=== PATIENT | male | born 1970 | race Caucasian/White ===

== ENCOUNTER 2022-07-11 00:21 | Observation (INO) | payer OTHER, SELFPAY ==
[2022-07-11] VITALS (25 sets, daily range): BP systolic 125–179; BP diastolic 83–98; PULSE 84–113; RESP 14–29; TEMP 35.9–37; O2SAT 94–100; BMI 20.7
--- NOTE | ~2022-07-11 | CT_ITS ---
EXAMINATION: CTA chest PE protocol DATE: 07/11/2022 01:54 INDICATION: Shortness of breath. Chest pain. TECHNIQUE: Computed tomography angiography (CTA) of the chest was performed with 100 mL Omnipaque-350 intravenous contrast timed to evaluate the pulmonary arteries. Coronal maximum intensity projection 3D-reconstructions were created by the technologist. Automated exposure control and iterative reconst ruction technique were employed. The dose-length product was 315.12 mGy-cm. COMPARISON: CT abdomen and pelvis 05/22/2014 FINDINGS: There is mild emphysema. There is mild atelectasis bilaterally. No pleural effusion. The he art size is normal. No pericardial effusion. There is no pulmonary embolus. There is diffuse hepatic steatosis. There is a 15 mm cyst in left kidney. There is mild thoracic spondylosis. There is mild ch ronic anterior wedging of 2 thoracic vertebral bodies. IMPRESSION: 1. No pulmonary embolus. 2. Mild emphysema. Reviewed, dictated and finalized at location A.
--- NOTE | ~2022-07-11 | XR_ITS ---
EXAMINATION: XR chest 2V DATE: 07/11/2022 01:44 INDICATION: Chest pain. Shortness of breath. TECHNIQUE: Frontal and lateral views of the chest were obtained. COMPARISON: Chest 2 views 05/24/2017, chest CT 07/11/2022 FINDINGS: The chest demonstrates clear lungs without pneumonia, pleural effusion, or pneumothorax. Th e heart size is normal. IMPRESSION: 1. No acute cardiopulmonary disease. Reviewed, dictated and finalized at location A.
--- NOTE | ~2022-07-11 | NM_ITS ---
EXAMINATION: NM stress w perf spect multi DATE: 07/12/2022 09:54 INDICATION: Chest pain. TECHNIQUE: Rest images were obtained following intravenous administration of 10.9 mCi Tc99m tetrofosm in (Myoview). The patient performed an exercise activity. At peak exercise, 35.0 mCi Tc99m tetrofosmi n (Myoview) was administered intravenously, and stress images were obtained. Data was reconstructed i nto short axis and horizontal and vertical long axis SPECT images. Gated SPECT images were also obtai anne. COMPARISON: Chest CT 07/11/2022 FINDINGS: There is no definite reversible or fixed perfusion abnormality to suggest ischemia or infar ction. There is no segmental wall motion abnormality. Left ventricular ejection fraction measures 6 0%. IMPRESSION: 1. No definite ischemia or infarct. 2. Normal left ventricular ejection fraction measuring 60%. Reviewed, dictated and finalized at location A.
--- NOTE | 2022-07-11 00:34 | ECG_ITS ---
Measurements Intervals [place] Rate: 105 P: 75 NE: 155 QRS: 81 QRSD: 111 T: 69 QT: 355 QTc: 471 Interpretive Statements SINUS TACHYCARDIA INCOMPLETE RIGHT BUNDLE BRANCH BLOCK MINIMAL Q WAVES- INFERIOR LEADS BORDERLINE ECG NO PREVIOUS ECG AVAILABLE FOR COMPARISON Electronically Signed On 07-11-2022 7:47:10 CDT by Mikael Tran D.O.
--- NOTE | 2022-07-11 00:49 | ED.CHESTPAIN ---
HPI - Chest Pain General Chief Complaint: Chest Pain Stated Complaint: CP & SOB Time Seen by Provider: 07/11/22 00:32 Source: patient, EMS and RN notes reviewed Mode of arrival: EMS Limitations: no limitations History of Present Illness HPI narrative: This is a 51 year old male smoker who presents for evaluation of chest pain and shortness of breath. He went to sleep around 8 pm and he was feeling fine. He woke up tonight and he felt like there was pressure on his chest and he could not breath. He states he thought he was having a heart attack so he called EMS. EMS gave patient aspirin 324 mg PO and nitro x 2 . Patient reports his pain was initially 10/10 but it is now 2/10. He reports having similar episodes in the past and he was told it was a panic attack. He denies heart disease. He does admit to drinking 6 pack of beer tonight. He denies cough, nausea, vomiting. Pain was nonradiating. Related Data Home Medications Medication Instructions Recorded Confirmed No Home Medications 07/11/22 07/11/22 Allergies Allergy/AdvReac Type Severity Reaction Status Date / Time Penicillins Allergy Mild SOB,RASH Verified 07/11/22 00:42 CHILD Review of Systems Review of Systems: All systems reviewed & are unremarkable except as noted in HPI and below Constitutional: Constitutional: Denies chills, Denies fatigue and Denies fever(s) Cardiovascular: Cardiovascular: Reports chest pain and Denies radiating jaw, neck or arm pain Respiratory: Respiratory: Denies chest congestion, Denies cough and Reports dyspnea Gastrointestinal: Gastrointestinal: Denies abdominal pain, Denies bloating, Denies nausea and Denies vomiting Psychiatric: Psychiatric: Reports anxiety PMFSH Past Medical History Medical History Anxiety Family History Family History Father Family history of malignant neoplasm Mother Family history of malignant neoplasm Social History Social History (Updated 07/11/22 @ 00:53 by Margi Noriega MD) Smoking packs per day: 1 Smoking cigarettes per day: 20.0 Years smoked: 30 Smoking pack-years: 30.00 Smoking status: Current every day smoker Tobacco type: cigarettes Alcohol intake: current Drinks per week: 20 Substance use: never Substance use type: does not use Spiritual care concerns: No Exam Const: General: alert Nutritional Appearance: well nourished Orientation/consciousness: patient oriented x3 Other: anxious, hyperventilating HENMT: Head: normal to inspection Face and sinus: normal facial exam Throat: posterior oropharynx normal Eyes: Conjunctivae: conjunctivae normal EOM: EOMs intact bilaterally Neck: Neck: normal visual inspection Chest: Chest palpation & inspection: normal inspection of the chest Resp: Effort & Inspection: tachypneic Auscultation: clear to auscultation bilaterally Cardio: Rate: tachycardic Rhythm: regular rhythm Heart sounds: no murmurs GI: GI Palp: Yes Soft to palpation, No Tenderness to palpation present (GI), No Guarding due to palpation present (GI) and No Rigid due to palpation Auscultation: normal bowel sounds Back/Spine/Pelvis: Back: no CVA tenderness Skin: General skin exam: normal color Rashes: no rashes Neuro: General: patient oriented x3, moves all extremities and CN's II-XI intact bilaterally Extrem: General: no pedal edema Other: clubbing is presents to fingernails Psych: Affect: Anxious affect present Attitude: cooperative Course Reevaluation(s) Reevaluation #1: PAtient state he feels better. He denies any pain. This may be panic attack. He was found to have oxygen in 70% when sleeping. He denies history of sleep apnea. Date: 07/11/22 Time: 01:39 Reevaluation #2: Patient denies pain or shortness of breath. He is agreeable to observation for serial troponins. Dr. Gutierres accept
[2022-07-11 01:02] LABS: Basophils Absolute Auto 0.1 K/mm3 (0.0-0.1); Basophils Percent Auto 0.8 % (0.2-1.2); Eosinophils Percent Auto 0.5 % (0-4.4); Hematocrit 45.8 % (42.0-52.0); Hemoglobin 15.6 g/dL (14.0-18.0); Immature Granulocyte Absolute 0.02 K/mm3 (0.00-0.031); Immature Granulocyte Percent A 0.3 % (0-0.5); Lymphocytes Absolute Auto 1.69 K/mm3 (0.9-3.2); Lymphocytes Percent Auto 21.4 % (18.3-44.2); Mean Corpuscular HGB Conc 34.1 g/dl (32-36); Mean Corpuscular Hemoglobin 32.5 pg (26-34); Mean Corpuscular Volume 95.4 fl (80-100); Mean Platelet Volume 8.9 fl (7.4-10.4); Monocytes Absolute Auto 0.9 K/mm3 (0.1-0.6); Neutrophils Absolute Auto 5.2 K/mm3 (1.3-6.7); Platelet Count Result 310 k/mm3 (150-375); Red Cell Distribution Width 14.8 % (11.5-14.5); White Blood Count 7.9 K/mm3 (4.5-10.0)
[2022-07-11 01:04] LABS: Alanine Aminotransferase 41 U/L (6-50); Albumin Level 4.8 g/dL (3.5-5.1); Alkaline Phosphatase 96 U/L (38-126); Anion Gap 19 mmol/L (8-16); Aspartate Amino Transferase 59 U/L (17-59); Bilirubin,Total 0.7 mg/dL (0.2-1.3); Blood Urea Nitrogen 11 mg/dL (9-20); Calcium 9.2 mg/dL (8.4-10.2); Carbon Dioxide 18 mmol/L (22-30); Chloride 103 mmol/L (98-107); Estimated CRCL calculation 110 ml/min; Estimated Glomerular Filt Rate > 60; Glucose 85 mg/dL (65-110); Lipase 89 U/L (23-300); Potassium 3.7 mmol/L (3.4-5.0); Sodium 140 mmol/L (137-145)
[2022-07-11 01:05] LABS: Prothrombin Time 12.6 Seconds (11.1-14.7)
[2022-07-11 01:06] LABS: Ethanol 242 mg/dL (<10); Magnesium 1.7 mg/dL (1.6-2.3); Partial Thromboplastin Time 29.5 SECONDS (22.3-36.8)
[2022-07-11 01:14] LABS: Alveolar/Arterial O2 Gradient 82.5 mmHg; Base Excess ABG -2.8 mEq/l (+/-2.0); Carboxyhemoglobin 5.9 % THb (0-2.0); Fractional Inspired Oxygen 28 %; HCO3 ABG 21.3 mEq/l (22.0-26.0); Methemoglobin ABG 0.3 %THb (0-1.5); Oxygen Content ABG 20.4 %vol (16.0-22.0); Oxygen Saturation ABG 95.1 % (95.0-100.0); Oxyhemoglobin 88.1 % THb (90.0-100.0); PCO2 ABG 35.6 mmHg (35.0-45.0); PO2 ABG 75.1 mmHg (80.0-100.0); PO2 FiO2 Ratio Arterial Blood 2.68 %; Reduced Hemoglobin 5.7 %THb (0-5.0); Total Hemoglobin 16.5 g/dL (12.0-18.0); pH ABG 7.395 (7.350-7.450)
[2022-07-11 01:15] LABS: Troponin I < 0.012 ng/mL (0.000-0.034)
[2022-07-11 01:15] LABS: Device NASAL CANNULA; Modified Allen's Test Pass; Site Drawn RIGHT RADIAL
[2022-07-11 01:22] LABS: D Dimer 0.55 ug/mL (<0.48)
[2022-07-11 03:48] LABS: Troponin I < 0.012 ng/mL (0.000-0.034)
--- NOTE | 2022-07-11 04:07 | PC.NURSE ---
report called at 04:08 to jacque
[2022-07-11] MEDS: SODIUM CHLORIDE 0.9% IV 1,000 ML 125 ML IV CONT (04:15)
--- NOTE | 2022-07-11 04:41 | ADMGEN ---
This patient, Mal Riley, was admitted to IMU Room 232-01 07/11/22 at 0420. Patient/family oriented to hospital policies and general routines including ID bracelet, bed and alarms, visiting hours, pain management, procedures, bathroom and other care routines, personal items, smoking policy, room service/diet, and visiting hours. Information on how to activate the Rapid Response Team has been discussed. Patient/Family are encouraged to report perceived risks to care and to ask questions if they do not understand what they are told or what they should do.
[2022-07-11] MEDS: PANTOPRAZOLE SODIUM IV 40 MG VIAL IV PUSH (08:50)
[2022-07-11 10:11] LABS: Troponin I < 0.012 ng/mL (0.000-0.034)
--- NOTE | 2022-07-11 11:56 | PM.IMHP ---
H&P: HPI History of Present Illness Date/Time: 07/11/22 20:56 Chief Complaint: Chest Pressure Narrative: 51M with a past medical history of tobacco abuse who presents to the emergency department with chest pressure. Patient says he noted the chest pressure around 0030 this morning and came to the emergency department. Describes it as feeling like an elephant was sitting on his chest. Patient also reports feeling short of breath at the time he was having chest pain. He denies left shoulder pain, left arm pain, back pain, headache, vision changes, nausea, vomiting, cough, rhinorrhea, sore throat. He does report feeling like his heart was racing during the chest pain. He says he has similar pain in the past that was a panic attack. He does not receive regular medical care and does not have a primary care physician. In the emergency department troponin negative, alcohol level 242. D-dimer 0.55. CTA chest with no pulmonary embolus but mild emphysema. CXR with no acute cardiopulmonary disease. Review of Systems Constitutional: Constitutional: Denies chills Eyes: Eyes: Denies no additional eye complaints and Denies blurry vision ENT: Denies nasal congestion and Denies nasal discharge Cardiovascular: Cardiovascular: Reports chest pain, Denies lightheadedness and Reports palpitations Respiratory: Respiratory: Denies chest congestion, Denies cough, Reports dyspnea and Denies dyspnea on exertion Gastrointestinal: Gastrointestinal: Denies abdominal pain, Denies nausea and Denies vomiting Musculoskeletal: Musculoskeletal: Denies myalgias Integumentary/Breasts: Skin/Breast: Denies rash Neurologic: Denies headache(s) [facility] Past Medical History Medical History (Updated 07/11/22 @ 21:13 by Sue Danielle MD) Anxiety Surgical History Surgical History Hx of left inguinal hernia repair Family History Family History Father Family history of malignant neoplasm Mother Family history of malignant neoplasm Grandparent Heart disease Social History Social History (Updated 07/11/22 @ 21:10 by Sue Danielle MD) Smoking packs per day: 1 Smoking cigarettes per day: 20.0 Years smoked: 30 Smoking pack-years: 30.00 Smoking status: Current every day smoker Tobacco type: cigarettes Alcohol intake: current Drinks per week: 20 Substance use: never Substance use type: does not use Living arrangements: with family Spiritual care concerns: No Comments Can drink up to a 12 pack in one night. Meds Home Medications and Allergies Home Medications Medication Instructions Recorded Confirmed Type No Home Medications 07/11/22 07/11/22 History Allergies Allergy/AdvReac Type Severity Reaction Status Date / Time Penicillins Allergy Mild SOB,RASH Verified 07/11/22 21:11 CHILD Vital Signs Vital Signs - 24 hr 07/11/22 00:37 07/11/22 00:40 07/11/22 01:16 Temperature 98.1 F Pulse Rate 93 108 H Respiratory Rate 19 Blood Pressure 138/92 H Pulse Oximetry 99 95 Oxygen Delivery Room Air Nasal Cannula Oxygen Flow Rate 2 07/11/22 00:31 07/11/22 01:30 07/11/22 01:52 Temperature Pulse Rate 110 H 97 103 H Respiratory Rate 23 H 14 29 H Blood Pressure 138/92 H Pulse Oximetry 99 95 97 Oxygen Delivery Oxygen Flow Rate 07/11/22 02:11 07/11/22 02:15 07/11/22 03:15 Temperature Pulse Rate 96 97 101 H Respiratory Rate 16 14 16 Blood Pressure 136/84 Pulse Oximetry 96 97 96 Oxygen Delivery Oxygen Flow Rate 07/11/22 04:15 07/11/22 04:20 07/11/22 06:00 Temperature 98.6 F Pulse Rate 100 113 H 105 H Respiratory Rate 15 16 Blood Pressure 140/85 125/86 Pulse Oximetry 97 97 Oxygen Delivery Oxygen Flow Rate 07/11/22 04:25 07/11/22 04:20 07/11/22 08:12 Temperature 97.1 F L Pulse Rate 110 H 98 Respiratory Rate 20 Bl
--- NOTE | 2022-07-11 12:55 | PM.CNCAR ---
Assessment and Plan Assessment and plan (1) Chest pain: Code(s): R07.9 - Chest pain, unspecified Status: Acute Plan Will plan for exercise MPI tomorrow morning. Patient to be NPO at midnight. Will check lipid panel for further risk stratification. History of Present Illness History of Present Illness Consult date/time: 07/11/22 12:55 Requesting physician: Margi Noriega MD Consult reason: chest pain Reason For Visit: Chest Pain, Alcohol Intoxication Narrative: Patient is a 51-year-old male with a history of tobacco dependence and alcohol use who presents with chest pain. Patient reports that he began having substernal chest pain and shortness of breath that woke him up in the middle the night. Patient reports improvement in symptoms since being here. Patient states that it felt like a panic attack. Patient states he has had these panic attack episodes in the past. Patient denies any prior history of chest pain. No prior history of cardiac issues. No history of hypertension diabetes or hyperlipidemia. Patient smokes 1 pack per day for the past 30 years. Patient drinks alcohol daily, had 6 cans of beers yesterday. Troponins negative x3, ECG without ischemic changes. Patient had an elevated D-dimer underwent CTA yesterday which was negative for PE. Review of Systems Review of Systems: All systems reviewed & are unremarkable except as noted in HPI and below PMFSH Past Medical History Medical History Anxiety Family History Family History Father Family history of malignant neoplasm Mother Family history of malignant neoplasm Social History Social History Smoking packs per day: 1 Smoking cigarettes per day: 20.0 Years smoked: 30 Smoking pack-years: 30.00 Smoking status: Current every day smoker Tobacco type: cigarettes Alcohol intake: current Drinks per week: 20 Substance use: never Substance use type: does not use Spiritual care concerns: No Meds Home Medications and Allergies Home Medications Medication Instructions Recorded Confirmed Type No Home Medications 07/11/22 07/11/22 History Allergies Allergy/AdvReac Type Severity Reaction Status Date / Time Penicillins Allergy Mild SOB,RASH Verified 07/11/22 00:42 CHILD Vital Signs Vital Signs - 24 hr 07/11/22 00:37 07/11/22 00:40 07/11/22 01:16 Temperature 36.7 C Pulse Rate 93 108 H Respiratory Rate 19 Blood Pressure 138/92 H Pulse Oximetry 99 95 Oxygen Delivery Room Air Nasal Cannula Oxygen Flow Rate 2 07/11/22 00:31 07/11/22 01:30 07/11/22 01:52 Temperature Pulse Rate 110 H 97 103 H Respiratory Rate 23 H 14 29 H Blood Pressure 138/92 H Pulse Oximetry 99 95 97 Oxygen Delivery Oxygen Flow Rate 07/11/22 02:11 07/11/22 02:15 07/11/22 03:15 Temperature Pulse Rate 96 97 101 H Respiratory Rate 16 14 16 Blood Pressure 136/84 Pulse Oximetry 96 97 96 Oxygen Delivery Oxygen Flow Rate 07/11/22 04:15 07/11/22 04:20 07/11/22 06:00 Temperature 37.0 C Pulse Rate 100 113 H 105 H Respiratory Rate 15 16 Blood Pressure 140/85 125/86 Pulse Oximetry 97 97 Oxygen Delivery Oxygen Flow Rate 07/11/22 04:25 07/11/22 04:20 07/11/22 08:12 Temperature 36.2 C L Pulse Rate 110 H 98 Respiratory Rate 20 Blood Pressure 144/83 H Pulse Oximetry 97 98 Oxygen Delivery Nasal Cannula Oxygen Flow Rate 2 07/11/22 08:32 07/11/22 08:00 07/11/22 10:00 Temperature Pulse Rate 91 110 H Respiratory Rate Blood Pressure Pulse Oximetry 94 Oxygen Delivery Nasal Cannula Oxygen Flow Rate 2 07/11/22 12:19 Temperature 35.9 C L Pulse Rate 84 Respiratory Rate 20 Blood Pressure 179/84 H Pulse Oximetry 98 Oxygen Delivery Oxygen Flow Rate Exam Const: General:
[2022-07-11 16:50] LABS: Cholesterol 219 mg/dL (0-200); HDL Direct 104 mg/dL; Triglycerides 70 mg/dL (<150)
--- NOTE | 2022-07-11 16:51 | PC.NURSE ---
On 07/11/22, the student[facility] provided care and completed [facility] documentation on this patient. I have reviewed the student's documentation and agree with the findings.
[2022-07-11 17:01] LABS: LDL Cholesterol Direct 91 mg/dL
[2022-07-11] MEDS: NICOTINE (*PBKC) 21 MG PATCH 1 PATCH TRANSDERM (20:38)
[2022-07-11] MEDS: chlordiazePOXIDE (*CRX) 25 MG CAPSULE PO (20:38)
[2022-07-12] VITALS (10 sets, daily range): BP systolic 118–142; BP diastolic 72–105; PULSE 73–126; RESP 20; TEMP 36.4–36.9; O2SAT 97–99
--- NOTE | 2022-07-12 | EST_ITS ---
Patient Info Name: Mal Riley Age: 51 years : 1970 Gender: Male Ht: 74 in Wt: 162 lbs BSA: 1.95 m2 Exam Date: 07/12/2022 8:30 AM Exam Location: [facility] Stress Patient Status: Inpatient Admit Date: 07/11/2022 Staff Ordering Physician: Simone Edgar MD Attending Provider: Cisco Gutierres MD Exercise Technologist: Holly Ng RDCS Nurse: SHIV EDWARD NP Exam Type: CA stress test treadmill w NM Study Info Indications R07.9 - Chest pain, unspecified A nuclear stress test was performed. Summary 1. Exercise capacity very good at >10 METS. 2. Normal blood pressure response. 3. No abnormal ST/T wave changes with exercise. 4. Please correlate with nuclear medicine images, reported separately. Protocol: [facility] Stress ECG Details Stage: REST Duration (min): 0 min : 55 sec Speed (mph): 0.0 Grade (%): 0 HR (bpm): 78 SBP (mmHg): 136 DBP (mmHg): 90 METS: --- Stage: REST Duration (min): 2 min : 32 sec Speed (mph): 0.0 Grade (%): 0 HR (bpm): 99 SBP (mmHg): 136 DBP (mmHg): 90 METS: --- Stage: STAGE 1 Duration (min): 1 min : 0 sec Speed (mph): 1.7 Grade (%): 10 HR (bpm): 105 SBP (mmHg): 136 DBP (mmHg): 90 METS: --- Stage: STAGE 1 Duration (min): 2 min : 0 sec Speed (mph): 1.7 Grade (%): 10 HR (bpm): 112 SBP (mmHg): 136 DBP (mmHg): 90 METS: --- Stage: STAGE 1 Duration (min): 3 min : 0 sec Speed (mph): 1.7 Grade (%): 10 HR (bpm): 114 SBP (mmHg): 137 DBP (mmHg): 77 METS: --- Stage: STAGE 2 Duration (min): 1 min : 0 sec Speed (mph): 2.5 Grade (%): 12 HR (bpm): 122 SBP (mmHg): 137 DBP (mmHg): 77 METS: --- Stage: STAGE 2 Duration (min): 2 min : 0 sec Speed (mph): 2.5 Grade (%): 12 HR (bpm): 125 SBP (mmHg): 143 DBP (mmHg): 77 METS: --- Stage: STAGE 2 Duration (min): 3 min : 0 sec Speed (mph): 2.5 Grade (%): 12 HR (bpm): 129 SBP (mmHg): 143 DBP (mmHg): 77 METS: --- Stage: STAGE 3 Duration (min): 1 min : 0 sec Speed (mph): 3.4 Grade (%): 14 HR (bpm): 137 SBP (mmHg): 149 DBP (mmHg): 74 METS: --- Stage: STAGE 3 Duration (min): 2 min : 0 sec Speed (mph): 3.4 Grade (%): 14 HR (bpm): 140 SBP (mmHg): 149 DBP (mmHg): 74 METS: --- Stage: STAGE 3 Duration (min): 3 min : 0 sec Speed (mph): 3.4 Grade (%): 14 HR (bpm): 143 SBP (mmHg): 163 DBP (mmHg): 78 METS: --- Stage: STAGE 4 Duration (min): 0 min : 50 sec Speed (mph): 4.2 Grade (%): 16 HR (bpm): 151 SBP (mmHg): 163 DBP (mmHg): 78 METS: --- Stage: RECOVERY Duration (min): 0 min : 9 sec Speed (mph): 1.5 Grade (%): 0 HR (bpm): 153 SBP (mmHg): 163 DBP (mmHg): 78 METS: --- Stage:
[2022-07-12] MEDS: LORazepam INJ (*CRX) 2 MG/ML VIAL IV PUSH ×2 (04:10→11:35)
[2022-07-12] MEDS: chlordiazePOXIDE (*CRX) 25 MG CAPSULE PO ×2 (04:11→11:32)
--- NOTE | 2022-07-12 09:17 | PC.NURSE ---
Notified of no lab orders in for this morning, 07/12/2022. No new orders received. Will continue to monitor.
--- NOTE | 2022-07-12 09:19 | PC.NURSE ---
Notified of no lab orders for this morning, 07/12/2022. Per MD patient is okay with no new lab orders. No new orders received. Will continue to monitor.
[2022-07-12] MEDS: PANTOPRAZOLE SODIUM IV 40 MG VIAL IV PUSH (11:28)
[2022-07-12] MEDS: NICOTINE (*PBKC) 21 MG PATCH 1 PATCH TRANSDERM (11:31)
[2022-07-12 11:58] LABS: Glucose Point of Care 190 mg/dl (65-105)
--- NOTE | 2022-07-12 13:27 | PM.DS ---
DS: Admitting Diagnosis Discharge Date 07/12/22 Admitting Diagnosis Chest pain DS: Discharge Diagnosis Discharge Diagnosis (1) Chest pain: Code(s): R07.9 - Chest pain, unspecified Status: Acute Assessment and Plan: Negative troponin and EKG not suggestive of ACS, but given patient significant smoking history and age, he could be having angina. Lexiscan showed no evidence of ischemia at this time. Patient did report having chest pain overnight when waking but this was relieved by lorazepam. Encouraged patient to follow up with primary care physician to get management of anxiety and possible sleep apnea. -Appreciate Cardiology recommendations (2) Tobacco abuse: Code(s): Z72.0 - Tobacco use Status: Acute Assessment and Plan: Advised patient he should stop smoking. (3) Alcohol intoxication: Code(s): F10.929 - Alcohol use, unspecified with intoxication, unspecified Status: Acute Assessment and Plan: Given lorazepam and chlordiazepoxide overnight. Nursing expesses concerns patient may be using other subastanses. UDS was sent and pending at the time of discharge. (4) Anxiety: Code(s): F41.9 - Anxiety disorder, unspecified Status: Acute Assessment and Plan: Advised patient he needs to establish care with a PCP to help get his anxiety under control with a daily medication, especially if his panic attacks are becoming more frequent. Plan is decision maker if patient cannot No formal MPOA Full Code Enoxaparin prophylaxis DS: Summary Hospital Course Reason for hospitalization: Chest pain Hospital Course: 51M with a past medical history of tobacco abuse who presents to the emergency department with chest pressure.?Due to patient age and smoking history patient had workup. Troponin was negative. EKG did not show any changes suggestive of ACS. Patient had lexiscan, which showed no ischemia. Overnight prior to the lexiscan, the patient reported chest pressure again that was relieved with lorazepam. Had discussion with patient about need for management of anxiety and panic attacks by medications by primary care physician. Patient also expressed concerns about possibly having sleep apnea. Advised the patient to follow up with his primary care physician to have an outpatient sleep study. Patient had elevated alcohol level on admission but denied any other substance use. Nursing expressed concern about possible polysubstance abuse, so a urine drug screen was sent. The results were pending prior to discharge. Time Spent with Patient Time attestation: Total time spent providing and/or coordinating discharge services: Exam Narrative: GENERAL: NAD, cooperative HEENT: Normocephalic, atraumatic, anicteric, nares clear, oropharynx moist and clear, dentition normal NECK:Supple CV: Normal S1, S2, RRR, No MRG RESP: CTAB, Normal work of breathing. Abdomen: Soft, non-tender, non-distended, +BS EXTREMITIES: Warm and well perfused, no clubbing, cyanosis, or edema. SKIN: warm, dry and intact. NEURO: CN 2-12 grossly intact DS: Data Data Completed and Pending Completed studies during hospitalization: EXAMINATION: NM stress w perf spect multi DATE: 07/12/2022 09:54 INDICATION: Chest pain. TECHNIQUE: Rest images were obtained following intravenous administration of 10.9 mCi Tc99m tetrofosmin (Myoview). The patient performed an exercise activity. At peak exercise, 35.0 mCi Tc99m tetrofosmin (Myoview) was administered intravenously, and stress images were obtained. Data was reconstructed into short axis and horizontal and vertical long axis SPECT images. Gated SPECT images were also obtained. COMPARISON: Chest CT 07/11/2022 FINDINGS: There is no definite reversible or fixed perfusion abnormality to suggest ischemia or infarction.? There is no segmental wall motion abnormality.? Left ventricular ejection fraction measures 60%. WALTER
[2022-07-12 15:50] LABS: Amphetamine Screen Urine Positive (Negative); Barbiturate Screen Urine Negative (Negative); Benzodiazepines Screen Urine Positive (Negative); Cannabinoid Screen Urine Negative (Negative); Cocaine Screen Urine Negative (Negative); Methadone Screen Urine Negative (Negative); Opiate Screen Urine Negative (Negative); Phencyclidine Screen Urine Negative (Negative)
== END 2022-07-12 14:52 | disposition home or self-care (01) ==
LOC: ANHED 01:35 → ANHIMU 05:07
PROVIDERS: Internal Medicine; Admitting Provider Internal Medicine; Emergency Provider General Practice; Visit Provider Family Medicine
DX: R07.9 Chest pain, unspecified (principal); F17.210 Nicotine dependence, cigarettes, uncomplicated; F10.929 Alcohol use, unspecified with intoxication, unspecified; Y90.8 Blood alcohol level of 240 mg/100 ml or more; R06.02 Shortness of breath; F41.9 Anxiety disorder, unspecified; F41.0 Panic disorder [episodic paroxysmal anxiety]; J43.9 Emphysema, unspecified; I45.10 Unspecified right bundle-branch block; R00.0 Tachycardia, unspecified
CPT/HCPCS: 36415; 36600; 71046; 71275; 78452; 80053; 80061; 80307; 82375; 82805; 82948; 83050; 83690; 83735; 84484; 85025; 85380; 85610; 85730; 93005; 93017; 96374; 96375; 96376; 99285; A9270; A9502; C9113; G0378; J2060; J7030; Q9967

== ENCOUNTER 2022-10-17 19:01 | Observation (INO) | payer OTHER, SELFPAY ==
--- NOTE | ~2022-10-17 | XR_ITS ---
EXAMINATION: XR chest 2V Exam Date/Time: 10/17/2022 19:15 REPRESENTATIVE PERSONAL SERVICE HISTORY: SEVERE CHEST PRESSURE, GASPING FOR AIR Comparison: 07/11/2022. RESULT: Lines, tubes, and devices: None. Lungs and pleura: Clear. Cardiomediastinal silhouette: Stable. Other: No acute osseous or upper abdominal finding. IMPRESSION: No acute cardiopulmonary process. Reviewed, dictated and finalized at location K. ESENTATIVE PERSONAL SERVICE
--- NOTE | 2022-10-17 19:04 | ECG_ITS ---
Measurements Intervals [place] Rate: 109 P: 32 [place]: 137 QRS: 83 QRSD: 114 T: 69 QT: 334 QTc: 452 Interpretive Statements SINUS TACHYCARDIA INCOMPLETE RIGHT BUNDLE BRANCH BLOCK ABNORMAL RHYTHM ECG COMPARED TO ECG 07/11/2022 00:28:15 NO SIGNIFICANT CHANGES Electronically Signed On 10-18-2022 14:46:19 DIETARY SERVICES MANAGER by Simone Edgar M.D.
[2022-10-17 19:47] LABS: Basophils Percent Auto 0.8 % (0.2-1.2); Eosinophils Absolute Auto 0.1 K/mm3 (0-0.3); Eosinophils Percent Auto 1.5 % (0-4.4); Hematocrit 47.7 % (42.0-52.0); Hemoglobin 15.5 g/dL (14.0-18.0); Immature Granulocyte Absolute 0.01 K/mm3 (0.00-0.031); Immature Granulocyte Percent A 0.2 % (0-0.5); Lymphocytes Absolute Auto 1.51 K/mm3 (0.9-3.2); Lymphocytes Percent Auto 28.3 % (18.3-44.2); Mean Corpuscular HGB Conc 32.5 g/dl (32-36); Mean Corpuscular Hemoglobin 31.9 pg (26-34); Mean Corpuscular Volume 98.1 fl (80-100); Mean Platelet Volume 8.7 fl (7.4-10.4); Monocytes Absolute Auto 0.5 K/mm3 (0.1-0.6); Monocytes Percent Auto 10.1 % (2.6-8.5); Neutrophils Absolute Auto 3.2 K/mm3 (1.3-6.7); Neutrophils Percent Auto 59.1 % (45.5-73.1); Platelet Count Result 299 k/mm3 (150-375); Red Blood Count 4.86 M/mm3 (4.6-6.20); Red Cell Distribution Width 16.3 % (11.5-14.5); White Blood Count 5.3 K/mm3 (4.5-10.0)
[2022-10-17 19:53] VITALS: BP 124/93; PULSE 115; RESP 26; TEMP 36.3; O2SAT 98
[2022-10-17 19:57] LABS: Alanine Aminotransferase 44 U/L (6-50); Albumin Level 4.5 g/dL (3.5-5.1); Alkaline Phosphatase 93 U/L (38-126); Anion Gap 12 mmol/L (8-16); Aspartate Amino Transferase 50 U/L (17-59); Bilirubin,Total 0.5 mg/dL (0.2-1.3); Blood Urea Nitrogen 7 mg/dL (9-20); Calcium 9.1 mg/dL (8.4-10.2); Carbon Dioxide 24 mmol/L (22-30); Chloride 107 mmol/L (98-107); Estimated Glomerular Filt Rate > 60; Glucose 88 mg/dL (65-110); Lipase 173 U/L (23-300); Potassium 3.7 mmol/L (3.4-5.0); Sodium 143 mmol/L (137-145)
[2022-10-17] MEDS: ASPIRIN 81 MG CHEWABLE TABLET 324 MG PO (19:58)
[2022-10-17 20:08] LABS: Troponin I < 0.012 ng/mL (0.000-0.034)
[2022-10-17 20:09] LABS: INR 0.9; Partial Thromboplastin Time 27.7 SECONDS (22.3-36.8)
--- NOTE | 2022-10-17 21:52 | PC.NURSE ---
patient has walked in and out of department multiple times stating, im trying to walk it off . patient drinking pepsi and smoking cigarettes.
[2022-10-17 22:30] VITALS: BP 138/88; PULSE 105; RESP 16; O2SAT 98
[2022-10-17 23:01] LABS: Troponin I < 0.012 ng/mL (0.000-0.034)
[2022-10-17] MEDS: PANTOPRAZOLE SODIUM IV 40 MG VIAL IV PUSH (23:23)
[2022-10-17] MEDS: NITROGLYCERIN SL 0.4 MG TABLET SUBLINGUAL (23:25)
--- NOTE | 2022-10-17 23:39 | PC.NURSE ---
second nitro given at 2330 after pt reports mild improvement in chest pain after initial dose. Report pain is now 8/10 versus 10/10
[2022-10-18] VITALS (7 sets, daily range): BP systolic 130–159; BP diastolic 84–99; PULSE 78–100; RESP 13–17; TEMP 36.6; O2SAT 93–100
[2022-10-18 00:03] LABS: D Dimer 0.36 ug/mL (<0.48)
[2022-10-18] MEDS: LACTATED RINGERS 1,000 ML 999 ML IV CONT (00:06)
--- NOTE | 2022-10-18 00:08 | PC.NURSE ---
pt reports cp a 5/10 after 2nd nitro. 3rd pill given now and fluids initiated.
--- NOTE | 2022-10-18 01:04 | ED.CHESTPAIN ---
HPI - Chest Pain General Chief Complaint: Chest Pain Stated Complaint: CHEST PAIN Time Seen by Provider: 10/17/22 22:20 History of Present Illness HPI narrative: 52-year-old male presenting with chest pain, he states that it feels like an elephant sitting on his chest. He had similar symptoms back in June, but this feels worse. States he felt some heartburn afterwards. He does have a history of alcohol use, has never been in withdrawal before. Last drink was earlier today. Related Data Home Medications Medication Instructions Recorded Confirmed No Home Medications 07/11/22 07/11/22 Allergies Allergy/AdvReac Type Severity Reaction Status Date / Time Penicillins Allergy Mild SOB,RASH Verified 07/11/22 21:11 CHILD Review of Systems Review of Systems: CONST: No fever. HEENT: No sore throat C/V: Chest pain/pressure RESP: No cough GI: Mild nausea : No dysuria. M/S: No joint pain. SKIN: No rash. NEURO: [No headache or focal numbness or weakness] PSYCH: [No depression] [facility] Past Medical History Medical History Anxiety Surgical History Surgical History Hx of left inguinal hernia repair Family History Family History Father Family history of malignant neoplasm Mother Family history of malignant neoplasm Grandparent Heart disease Social History Social History Smoking packs per day: 1 Smoking cigarettes per day: 20.0 Years smoked: 30 Smoking pack-years: 30.00 Smoking status: Current every day smoker Tobacco type: cigarettes Alcohol intake: current Drinks per week: 20 Substance use: never Substance use type: does not use Spiritual care concerns: No Exam Narrative: EXAMINATION OF ORGAN SYSTEMS/BODY AREAS: Constitutional: Vital signs per nursing GENERAL: Appears uncomfortable HEAD: Normal with no signs of head trauma. EYES: EOMI, conjunctiva normal ENT: Hearing grossly intact LUNGS: Nonlabored breathing. HEART: Tachycardic ABD: [Soft], [nontender to palpation] EXT: Normal range of motion SKIN: [No rashes or lesions.] NEURO: [Alert and oriented x 3. No gross focal sensory or strength deficits.] PSYCH: Anxious affect Course Vital Signs Vital signs: Vital Signs Temperature 97.4 F L 10/17/22 19:53 Pulse Rate 115 H 10/17/22 19:53 Respiratory Rate 26 H 10/17/22 19:53 Blood Pressure 124/93 H 10/17/22 19:53 Pulse Oximetry 98 10/17/22 19:53 Oxygen Delivery Room Air 10/17/22 19:53 Temperature 97.4 F L 10/17/22 19:53 Pulse Rate 105 H 10/17/22 22:30 Respiratory Rate 16 10/17/22 22:30 Blood Pressure 138/88 10/17/22 22:30 Pulse Oximetry 98 10/17/22 22:30 Oxygen Delivery Room Air 10/17/22 19:53 MDM - Chest Pain MDM Narrative Medical decision making narrative: ED COURSE AND MEDICAL DECISION MAKIN-year-old male presenting with chest pain. EKG done in triage negative for acute ischemic changes. Cardiac workup is initiated. EKG: Performed in triage and interpreted by me. Sinus tachycardia. Rate 109. Normal axis. NM normal. QRS duration normal. QTc normal. No pathologic Q waves. No ST segment elevation or depression to suggest acute ischemia. No RV strain pattern. HEART score is 4. Wells low risk with negative ddimer making PE unlikely. Presentation not consistent with dissection or aneurysm without radiation of pain or pulse deficits. CXR negative for mediastinal widening. No abdominal pain or signs of sepsis that would be concerning for esophageal perforation or mediastinitis. No cardiomegaly or JVD to suggest pericardial effusion/tamponade. Also considered anxiety, alcohol withdrawal, however patient does not have any tremors. Patient is given nitroglycerin here, and on reevaluation, states that his symptoms have largely
--- NOTE | 2022-10-18 01:07 | PC.NURSE ---
pt reports chest pain at a 3 now after 3 nitro and 1L of LR. Reults reported to provider.
[2022-10-18 01:57] LABS: Influenza A QL RT-PCR Negative (Negative); Influenza B QL RT-PCR Negative (Negative); RSV RNA, RT-PCR Negative (Negative); SARS-CoV-2 RNA PCR Negative
[2022-10-18 03:05] LABS: Troponin I < 0.012 ng/mL (0.000-0.034)
[2022-10-18] MEDS: LORazepam (*CRX) 1 MG TABLET PO (05:56)
--- NOTE | 2022-10-18 12:37 | PC.NURSE ---
Per Vice President And Portfolio Manager at bedside, pt is poss going to be discharged home w/ out patient tests - okay to order lunch/meal. Called dietary at this time.
--- NOTE | 2022-10-18 13:22 | PM.DS ---
DS: Admitting Diagnosis Discharge Date October 18, 2022 Admitting Diagnosis Chest pain DS: Summary Hospital Course Hospital Course: Admission diagnoses include chest pain. Discharge diagnoses chest pain as well Patient is a 52-year-old gentleman had a history of chest pain back in June negative workup and stress test at that time. Came in with chest tightness and says it felt like someone is sitting on his chest. This is completely resolved. Troponins were negative blood pressure was mildly elevated. I recommend he follow-up with his primary care physician get treatment for his high blood pressure and also get treatment for smoking cessation. Patient also is noted have sleep apnea and needs to get treatment for that as well. He has not followed up with his primary care physician after his visit here in the June. Otherwise workup unrevealing Time Spent with Patient Time attestation: Total time spent providing and/or coordinating discharge services: Exam Narrative: General: alert and oriented Psych: appropriate mood nad affect Eyes: PERRLA Neck: Trachea midline, no new lesions Skin: no changes Lungs: CTA Cardiac: Normal S1,S2, no MGR ABD: soft, nd, nt, nbs Ext: no new lesions, no cce Vasc: Pulses intact DS: Data Data Completed and Pending Labs on day of discharge: Labs from last 24 hours 10/18/22 10/18/22 10/17/22 02:34 01:16 22:25 WBC RBC Hgb Hct MCV MCH MCHC RDW Plt Count MPV Immature Gran % (Auto) Neut % (Auto) Lymph % (Auto) [place] % (Auto) Eos % (Auto) Baso % (Auto) Lymph # (Auto) [place] # (Auto) Eos # (Auto) Baso # (Auto) Abs Immat Gran (auto) Absolute Neuts (auto) Absolute Nucleated RBC Nucleated RBC % PT INR APTT D-Dimer Sodium Potassium Chloride Carbon Dioxide Anion Gap BUN Creatinine Estim Creat Clear Calc Estimated GFR Glucose Calcium Total Bilirubin AST ALT Alkaline Phosphatase Troponin I < 0.012 < 0.012 Total Protein Albumin Lipase Influenza A (RT-PCR) Negative Influenza B (RT-PCR) Negative RSV (RT-PCR) Negative SARS-CoV-2 RNA (RT-PCR) Negative 10/17/22 10/17/22 10/17/22 19:38 19:38 19:38 WBC RBC Hgb Hct MCV MCH MCHC RDW Plt Count MPV Immature Gran % (Auto) Neut % (Auto) Lymph % (Auto) [place] % (Auto) Eos % (Auto) Baso % (Auto) Lymph # (Auto) [place] # (Auto) Eos # (Auto) Baso # (Auto) Abs Immat Gran (auto) Absolute Neuts (auto) Absolute Nucleated RBC Nucleated RBC % PT 12.0 INR 0.9 APTT 27.7 D-Dimer 0.36 Sodium 143 Potassium 3.7 Chloride 107 Carbon Dioxide 24 Anion Gap 12 BUN 7 L Creatinine 0.80 Estim Creat Clear Calc Not Reportable Estimated GFR > 60 Glucose 88 Calcium 9.1 Total Bilirubin 0.5 AST 50 ALT 44 Alkaline Phosphatase 93 Troponin I < 0.012 Total Protein 8.0 Albumin 4.5 Lipase 173 Influenza A (RT-PCR) Influenza B (RT-PCR) RSV (RT-PCR) SARS-CoV-2 RNA (RT-PCR) 10/17/22 19:38 WBC 5.3 RBC 4.86 Hgb 15.5 Hct 47.7 MCV 98.1 MCH 31.9 MCHC 32.5 RDW 16.3 H Plt Count 299 MPV 8.7 Immature Gran % (Auto) 0.2 Neut % (Auto) 59.1 Lymph % (Auto) 28.3 [place] % (Auto) 10.1 H Eos % (Auto) 1.5 Baso % (Auto) 0.8 Lymph # (Auto) 1.51 [place] # (Auto) 0.5 Eos # (Auto) 0.1 Baso # (Auto) 0.0 Abs Immat Gran (auto) 0.01 Absolute Neuts (auto) 3.2 Absolute Nucleated RBC 0.0 Nucleated RBC % 0.0 PT INR APTT D-Dimer Sodium Potassium Chloride Carbon Dioxide Anion Gap BUN Creatinine Estim Creat Clear Calc Estimated GFR Glucose Calcium Total Bilirubin AST ALT Alkaline Phosphatase Troponin I Total Protein Albumin Lipase Influenza A (RT-PCR) Influenza B (RT-PCR) RSV (R
--- NOTE | 2022-10-19 07:26 | PC.NURSE ---
Talked to JEOVANY Melo in ED about patient discharge. Patient was discharged by Agatha Molina RN at 1404 on 10/18/2022.
--- NOTE | 2022-11-19 12:27 | PM.IMHP ---
H&P: HPI History of Present Illness Date/Time: 11/19/22 12:27 Chief Complaint: 52-year-old male presenting with chest pain, he states that it feels like an elephant sitting on his chest.? He had similar symptoms back in June, but this feels worse.? States he felt some heartburn afterwards.? He does have a history of alcohol use, has never been in withdrawal before.? Last drink was earlier today. Review of Systems Review of Systems: 10 point review systems negative except as stated in HPI PMFSH Past Medical History Medical History Anxiety Surgical History Surgical History Hx of left inguinal hernia repair Family History Family History Father Family history of malignant neoplasm Mother Family history of malignant neoplasm Grandparent Heart disease Social History Social History Smoking packs per day: 1 Smoking cigarettes per day: 20.0 Years smoked: 30 Smoking pack-years: 30.00 Smoking status: Current every day smoker Tobacco type: cigarettes Alcohol intake: current Drinks per week: 20 Substance use: never Substance use type: does not use Living arrangements: with family Spiritual care concerns: No Meds Home Medications and Allergies Home Medications Medication Instructions Recorded Confirmed Type No Home Medications 07/11/22 07/11/22 History Allergies Allergy/AdvReac Type Severity Reaction Status Date / Time Penicillins Allergy Mild SOB,RASH Verified 07/11/22 21:11 CHILD Exam Narrative: General: alert and oriented Psych: appropriate mood nad affect Eyes: PERRLA Neck: Trachea midline, no new lesions Skin: no changes Lungs: CTA Cardiac: Normal S1,S2, no MGR ABD: soft, nd, nt, nbs Ext: no new lesions, no cce Vasc: Pulses intact Assessment and Plan Assessment and plan (1) Chest pain: Code(s): R07.9 - Chest pain, unspecified Status: Acute Assessment and Plan: Cardiac workup pending
== END 2022-10-18 14:04 | disposition home or self-care (01) ==
LOC: ANHED 10-18 08:29 → ANH3MEDSUR 10-18 13:22
PROVIDERS: Emergency Medicine; Admitting Provider Internal Medicine; Emergency Provider Emergency Medicine; Visit Provider Chiropractor
DX: R07.9 Chest pain, unspecified (principal); R11.0 Nausea; F41.9 Anxiety disorder, unspecified; R03.0 Elevated blood-pressure reading, without diagnosis of hypertension; R00.0 Tachycardia, unspecified; R94.31 Abnormal electrocardiogram [ECG] [EKG]; F17.210 Nicotine dependence, cigarettes, uncomplicated; Z20.822 Contact with and (suspected) exposure to COVID-19; F10.90 Alcohol use, unspecified, uncomplicated; Z82.49 Family history of ischemic heart disease and other diseases of the circulatory system
CPT/HCPCS: 36415; 71046; 80053; 83690; 84484; 85025; 85380; 85610; 85730; 87637; 93005; 96361; 96374; 99285; A9270; C9113; G0378; J7120

== ENCOUNTER 2023-08-14 12:20 | Emergency (ER) | payer OTHER, SELFPAY ==
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
[2023-08-14 12:22] VITALS: BP 152/92; PULSE 107; RESP 20; TEMP 36.2; O2SAT 96
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
[2023-08-14 14:58] VITALS: BP 146/96; PULSE 99; RESP 17; O2SAT 99
== END 2023-08-14 14:59 | disposition home or self-care (01) ==
PROVIDERS: Emergency Provider Nurse Practitioner Family
DX: S09.90XA Unspecified injury of head, initial encounter (principal); S13.4XXA Sprain of ligaments of cervical spine, initial encounter; S20.212A Contusion of left front wall of thorax, initial encounter; F17.210 Nicotine dependence, cigarettes, uncomplicated; F41.9 Anxiety disorder, unspecified; V43.52XA Car driver injured in collision with other type car in traffic accident, initial encounter
CPT/HCPCS: 70450; 70486; 71250; 72125; 99284

== ENCOUNTER 2023-08-21 09:11 | Emergency (ER) | payer OTHER, SELFPAY ==
[2023-08-21 09:14] VITALS: BP 149/107; PULSE 111; RESP 18; TEMP 36.5; O2SAT 96
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
[2023-08-21 10:14] VITALS: RESP 16
== END 2023-08-21 10:16 | disposition home or self-care (01) ==
PROVIDERS: Emergency Provider Physician Assistant
DX: S13.4XXD Sprain of ligaments of cervical spine, subsequent encounter (principal); S20.219D Contusion of unspecified front wall of thorax, subsequent encounter; S00.83XD Contusion of other part of head, subsequent encounter; V89.2XXD Person injured in unspecified motor-vehicle accident, traffic, subsequent encounter
CPT/HCPCS: 99281

== ENCOUNTER 2023-11-14 06:17 | Emergency (ER) | payer OTHER, SELFPAY ==
[2023-11-14] VITALS (8 sets, daily range): BP systolic 102–123; BP diastolic 67–88; PULSE 67–85; RESP 14–23; TEMP 36.3–36.7; O2SAT 94–100
--- NOTE | ~2023-11-14 | XR_ITS ---
Right Shoulder Technique: AP and scapular Y views were obtained. Clinical History: Dislocation Findings: There is anteroinferior dislocation of the right humeral head. Hill-Sachs impaction deformi ty noted at the posterior superior humeral head. No definite glenoid fracture evident on this exam. A C joint intact. Soft tissues are unremarkable. Impression: Anteroinferior dislocation of the right humeral head with associated Hill-Sachs impaction deformity. No definite osseous glenoid fracture seen on this exam. Reviewed, dictated and finalized at [facility]. IED STATISTICIAN Impression: Anteroinferior dislocation of the right humeral head with associated Hill-Sachs impaction deformity. No definite osseous glenoid fracture seen on this exam.
--- NOTE | ~2023-11-14 | XR_ITS ---
Right Shoulder Technique: AP and scapular Y views were obtained. Clinical History: Post reduction COMPARISON: 11/14/2023 at 6:36 AM Findings: Previously noted glenohumeral joint dislocation has been successfully reduced. Osseous alig nment is now anatomic. No definite fracture identified. The glenohumeral and acromioclavicular joint spaces are preserved. Soft tissues are unremarkable. Impression: Successful reduction of previously noted humeral head dislocation. No fracture or dislocation seen cu rrently. Reviewed, dictated and finalized at location [facility]. ICAL DATA MANAGEMENT MANAGER Impression: Successful reduction of previously noted humeral head dislocation. No fracture or dislocation seen currently.
[2023-11-14] MEDS: SODIUM CHLORIDE 0.9% IV 1,000 ML 999 ML (06:58)
[2023-11-14] MEDS: PROPOFOL IV EMULSION 200 MG/20 ML VIAL 20 MG IV PUSH (07:00)
[2023-11-14] MEDS: HYDROmorphone HCL INJ (*CRX) 1 MG/ML SYR IV PUSH (07:00)
[2023-11-14] MEDS: PROPOFOL IV EMULSION 200 MG/20 ML VIAL 80 MG IV PUSH (07:00)
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
== END 2023-11-14 07:53 | disposition home or self-care (01) ==
PROVIDERS: Emergency Provider Emergency Medicine; PCP Family Medicine
DX: S43.004A Unspecified dislocation of right shoulder joint, initial encounter (principal); F17.210 Nicotine dependence, cigarettes, uncomplicated; W00.0XXA Fall on same level due to ice and snow, initial encounter
CPT/HCPCS: 23650; 73030; 99285; J1170; J2704; J7030

== ENCOUNTER 2024-03-15 20:54 | Emergency (ER) | payer OTHER, SELFPAY ==
--- NOTE | ~2024-03-15 | CT_ITS ---
EXAMINATION: CTA chest PE protocol DATE: 03/15/2024 22:18 INDICATION: Chest pain. TECHNIQUE: Computed tomography angiography (CTA) of the chest was performed with 100 mL Omnipaque-350 intravenous contrast timed to evaluate the pulmonary arteries. Coronal maximum intensity projection 3D-reconstructions were created by the technologist. Automated exposure control and iterative reconst ruction technique were employed. The dose-length product was 352.04 mGy-cm. COMPARISON: Chest CT 08/14/23 FINDINGS: There is mild emphysema. There is mild atelectasis bilaterally. No pleural effusion. The he art size is normal. No pericardial effusion. There are coronary artery calcifications. There is a pul monary embolus in left upper lobe. There is mild thoracic spondylosis and moderate cervical spondylos is. There are chronic compression fractures of T6, T7, and T8. IMPRESSION: 1. Pulmonary embolus in left upper lobe. Sensitivity and specificity for pulmonary emboli is severely decreased by motion artifact and suboptimal contrast opacification. 2. Mild emphysema. Reviewed, dictated and finalized at location [facility]. IMPRESSION: 1. Pulmonary embolus in left upper lobe. Sensitivity and specificity for pulmon edgar emboli is severely decreased by motion artifact and suboptimal contrast opa cification. 2. Mild emphysema.
--- NOTE | ~2024-03-15 | XR_ITS ---
EXAMINATION: XR chest 2V 03/15/2024 21:21 INDICATION: Chest pain PROCEDURE: 2 view chest COMPARISON: Comparison to multiple prior studies sequentially, with oldest reviewed study dated 07/21. FINDINGS: The lungs are clear. The cardiomediastinal silhouette is within normal limits. There are no pleural effusions. There is no pneumothorax suspected. IMPRESSION: 1: NO ACUTE CARDIOPULMONARY DISEASE. Reviewed, dictated and finalized at location A.
[2024-03-15 20:50] VITALS: TEMP 36.6
[2024-03-15 20:54] VITALS: O2SAT 99
--- NOTE | 2024-03-15 20:58 | ECG_ITS ---
SEE SCANNED COPY FOR CONFIRMED REPORT MTDD
[2024-03-15 21:00] VITALS: BP 139/100; PULSE 115; RESP 16; O2SAT 99
--- NOTE | 2024-03-15 21:00 | ED.CHESTPAIN ---
HPI - Chest Pain General Chief Complaint: Chest Pain Stated Complaint: chest pain Time Seen by Provider: 03/15/24 21:00 Source: patient Limitations: no limitations History of Present Illness HPI narrative: Patient is a 53-year-old male presents to the emergency department complaining of chest pain. Patient notes just prior to arrival he was standing up with nothing other urinary wean the sudden onset of sensation of something sitting in the middle of his chest, associated shortness of breath common assessment constant since onset, as notes anything making it better or worse, it is to history of this in the past approximately 2-3 days ago when he was at an outside facility and was monitored and then released and denies any echocardiograms or cardiac catheterizations being performed. Patient admits to history of smoking a pack of cigarettes daily and a history of anxiety attacks. Patient denies history of blood clots. Patient denies recent injuries, recent illness, nausea, vomiting, diarrhea, melena, hematochezia, numbness, weakness, cough, fevers, abdominal my. Patient denies family history of heart disease at a young age. Patient denies being treated for blood pressure over the past and denies cholesterol abnormalities. Patient has never seen a airborne mission systems superintendent. Patient received aspirin 324 mg and 1 dose of nitroglycerin EN route by EMS. Patient admits to consuming a couple of alcoholic drinks earlier today. Related Data Allergies Allergy/AdvReac Type Severity Reaction Status Date / Time Penicillins Allergy Mild SOB,RASH Verified 09/10/23 08:19 CHILD Review of Systems Review of Systems: A 10 system review of systems was completed on the patient and is negative except for what is stated in the HPI. Nursing and ancillary documentation was reviewed. PENDING SALE TO [facility] Past Medical History Medical History Abdominal abscess Alcohol intoxication Anxiety Bilateral hydrocele Diverticulitis with microperforation. 07/22/14 Left inguinal hernia Scrotal swelling Surgical History Surgical History Hx of left inguinal hernia repair S/P repair of hydrocele Family History Family History Father Family history of malignant neoplasm Mother Family history of malignant neoplasm Grandparent Heart disease Social History Social History Social History: , currently . Smoking packs per day: 1 Smoking cigarettes per day: 20.0 Years smoked: 30 Smoking pack-years: 30.00 Smoking status: Current every day smoker Tobacco type: cigarettes Alcohol intake: current Drinks per week: 20 Substance use: never Substance use type: does not use Lack of Transportation: No Lack of Food: Never True Current Housing: I Have Housing Concerned About Future Housing: No Difficulty Paying Gas/Electric Bills: No Difficulty Paying for Meds: No Currently Unemployed: No Education: Don't Know Difficulty w/ Childcare or Family Care: No Living arrangements: with family Occupation/Education: occupation Additional occupation/education comments: [employer] Gender identity (if verbalized by the patient): Male Sexual Orientation (if Verbalized by the Patient): Straight or Heterosexual Spiritual care concerns: No Comments At time of signature, I have reviewed and agree with nursing past medical, surgical, social and family history unless otherwise noted. Please see the nursing chart for further information. There is no relevant family history pertinent to the presenting complaint. Exam Narrative: CONST: No acute distress. Well nourished. HENMT: Head is normocephalic and atraumatic. Moist mucous membranes. No posterior oropharynx erythema. EYES: No conjunctival ic
[2024-03-15] MEDS: LORazepam INJ (*CRX) 2 MG/ML VIAL 1 MG IV PUSH (21:13)
[2024-03-15 21:15] LABS: Basophils Absolute Auto 0.1 K/mm3 (0.0-0.1); Basophils Percent Auto 0.7 % (0.2-1.2); Eosinophils Absolute Auto 0.1 K/mm3 (0-0.3); Eosinophils Percent Auto 0.6 % (0-4.4); Immature Granulocyte Absolute 0.03 K/mm3 (0.00-0.031); Immature Granulocyte Percent A 0.3 % (0-0.5); Lymphocytes Absolute Auto 2.19 K/mm3 (0.9-3.2); Lymphocytes Percent Auto 21.1 % (18.3-44.2); Mean Corpuscular HGB Conc 32.6 g/dl (32-36); Mean Corpuscular Volume 95.3 fl (80-100); Mean Platelet Volume 8.5 fl (7.4-10.4); Monocytes Absolute Auto 0.7 K/mm3 (0.1-0.6); Monocytes Percent Auto 6.8 % (2.6-8.5); Neutrophils Absolute Auto 7.3 K/mm3 (1.3-6.7); Neutrophils Percent Auto 70.5 % (45.5-73.1); Platelet Count Result 374 k/mm3 (150-375); Red Blood Count 4.51 M/mm3 (4.6-6.20); Red Cell Distribution Width 14.1 % (11.5-14.5); White Blood Count 10.4 K/mm3 (4.5-10.0)
[2024-03-15 21:25] LABS: Magnesium 1.9 mg/dL (1.6-2.3)
[2024-03-15 21:26] LABS: Alanine Aminotransferase 17 U/L (6-50); Albumin Level 4.5 g/dL (3.5-5.1); Alkaline Phosphatase 88 U/L (38-126); Anion Gap 8 mmol/L (4-12); Aspartate Amino Transferase 34 U/L (17-59); Bilirubin,Total 0.6 mg/dL (0.2-1.3); Blood Urea Nitrogen 13 mg/dL (9-20); Carbon Dioxide 26 mmol/L (22-30); Chloride 107 mmol/L (98-107); Estimated CRCL calculation 84 ml/min; Estimated Glomerular Filt Rate > 60; Glucose 76 mg/dL (65-110); Lipase 145 U/L (23-300); Potassium 3.9 mmol/L (3.4-5.0); Sodium 141 mmol/L (137-145)
[2024-03-15 21:27] LABS: INR 0.9; Partial Thromboplastin Time 28.9 Seconds (22.3-36.8); Prothrombin Time 12.7 Seconds (11.1-14.7)
[2024-03-15 21:38] LABS: Troponin I < 0.012 ng/mL (0.000-0.034)
[2024-03-15 21:48] LABS: D Dimer 0.63 ug/mL (<0.48)
[2024-03-15 22:20] VITALS: PULSE 99; RESP 19; O2SAT 100
[2024-03-15 22:54] VITALS: BP 142/87; PULSE 92; RESP 13; O2SAT 97
[2024-03-16 00:43] VITALS: BP 129/80; PULSE 106; RESP 18
[2024-03-16] MEDS: APIXABAN 5 MG TABLET 10 MG PO (01:22)
[2024-03-16 01:39] VITALS: PULSE 106; RESP 14; O2SAT 97
[2024-03-16 01:40] LABS: Troponin I < 0.012 ng/mL (0.000-0.034)
== END 2024-03-16 01:39 | disposition home or self-care (01) ==
PROVIDERS: Emergency Provider Student in an Organized Health Care Education/Training Program; PCP Family Medicine
DX: I26.99 Other pulmonary embolism without acute cor pulmonale (principal); R00.0 Tachycardia, unspecified; F17.210 Nicotine dependence, cigarettes, uncomplicated; F41.9 Anxiety disorder, unspecified
CPT/HCPCS: 36415; 71046; 71275; 80053; 83690; 83735; 84484; 85025; 85380; 85610; 85730; 93005; 96374; 99284; A9270; J2060; Q9967